=== PATIENT | male | born 1985 | race Caucasian/White ===

== ENCOUNTER → 2024-03-20 13:23 | Outpatient (REF) | payer OTHER, SELFPAY | LOC: MRI 3T 13:23 | PROVIDERS: ATTENDING PHYSICIAN Student in an Organized Health Care Education/Training Program | DX: S46.912A Strain of unspecified muscle, fascia and tendon at shoulder and upper arm level, left arm, initial encounter (principal) | CPT/HCPCS: 23350; 73040; 73222 ==